=== PATIENT | male | born 1970 | race Caucasian/White ===

== ENCOUNTER 2018-11-09 12:19 | Day surgery (SDC) | payer BC, OTHER ==
[2018-11-06 12:28] VITALS: BMI 34.9
[~2018-11-09 12:19] MED LIST: ACETAMINOPHEN TAB 500 MG TAB PO ONE; DEXAMETHASONE SOD PHOSPHATE 10 MG/ML 1 ML VIAL IV ONE; HYDROmorphone 0.5 MG/0.5 ML SYRINGE IVP PRN; LACTATED RINGERS 1,000 ML IV SCH; MIDAZOLAM (PF) 2 MG/2 ML VIAL IV PRN; ONDANSETRON 4 MG/2 ML VIAL IVP ONE; SCOPOLAMINE 1.5MG/72HR PATCH TRANSDERM ONE; ceFAZolin IN SWFI 2 GM/20 ML SYRINGE IVP ONE
[2018-11-09] MEDS ORDERED: LACTATED RINGERS 1,000 ML IV ONE ×2 (12:54→15:08)
[2018-11-09] MEDS ORDERED: LIDOCAINE 1% 20 ML VIAL (10MG/ML) FOR IV START INTRADERMA ONE (12:55)
[2018-11-09] MEDS ORDERED: fentaNYL (PF) 50 MCG/ML 2 ML AMP IVP ONE (13:14)
[2018-11-09] MEDS ORDERED: ROPIVACAINE 5 MG/ML 30 ML VIAL ONE (14:00)
[2018-11-09] MEDS ORDERED: EPINEPHrine 4 MG in SODIUM CHLORIDE 0.9% IRRIGATIO 3,000 ML IRRIGATION ONE ×8 (14:00)
[2018-11-09] MEDS ORDERED: MIDAZOLAM 2 MG/2 ML VIAL ONE (14:00)
[2018-11-09] MEDS ORDERED: PROPOFOL 10 MG/ML 20 ML VIAL IV ONE (14:00)
[2018-11-09] MEDS ORDERED: SUCCINYLCHOLINE CHLORIDE 100 MG/5 ML SYR IV ONE (14:00)
[2018-11-09] MEDS ORDERED: fentaNYL (PF) 50 MCG/ML 2 ML AMP ONE (14:00)
[2018-11-09] MEDS ORDERED: LIDOCAINE 1% INJ 10MG/ML (20 ML MDV) ONE (14:00)
--- NOTE | 2018-11-09 14:16 | P.ONQ ---
Anesthesiology Proc Note - PNB - Peripheral Nerve Block Performed Right Interscalene Single Time Out Performed: Yes Procedure Start Time: 13:14 Procedure Stop Time: :23 Indication: Requested by physician Specifically requested for management of pain by DrVonda: Ed Saeed Sedation Type: Sedate with meaningful contact maintained Preparation: Sterile Prep Position: Supine Needle Types: Other (see comment) Needle Size: 100mm (4") Needle Gauge: 21 (PUJUNK) Technique: Ultrasound Injectate: 0.5% Ropivacaine (see comment for volume) (20 ml plus Dexamethason 4 mg) Adjunct: Epinephrine (see comment for dilution ratio) Blood Aspirated: No Pain Paresthesia on Injection Noted: No Resistance on Injection: Normal Events: Uneventful and Well Tolerated
[2018-11-09 15:35] VITALS: TEMP 97
[2018-11-09 16:35] VITALS: BP 116/69; PULSE 89; RESP 16
--- NOTE | 2018-11-09 17:13 | P.OP ---
Date of Procedure: 11/09/18 Procedure(s) Performed: PREOPERATIVE DIAGNOSES: 1. Right shoulder long head biceps severe tendinopathy 2. Impingement syndrome with acromioclavicular joint arthritis 3. Rotator cuff tendinopathy 4. Status post previous shoulder arthroscopy 3 years ago. POSTOPERATIVE DIAGNOSES: 1. Right shoulder subacromial mild bursitis with impingement and subacromial adhesions 2. Acromioclavicular joint arthritis 3. Superior labral degenerative/type I tear 4. Superficial rotator cuff tendinopathy, both articular and bursal sided PROCEDURES PERFORMED: 1. Right shoulder arthroscopy with partial distal clavicle excision 3. Arthroscopic debridement of superior labral tear and long head biceps t enotomy and subacromial bursectomy 3. Arthroscopic lysis of adhesions subacromial space with manipulation under anesthesia 4. Arthroscopic subacromial decompression ANESTHESIA: General plus interscalene block (given for post-operative pain management) RAIL CAR LOADER: None COMPLICATIONS: None ESTIMATED BLOOD LOSS: Less than 10 cc TOURNIQUET: None DISPOSITION: To post-anesthesia care unit INDICATIONS: Mr. Light is a 48 year old male with a history of pain in the right shoulder that has been resistant to conservative management. He has had previous arthroscopic surgery on this shoulder but now has signs and symptoms consistent with significant long head biceps symptomatology. There is impingement also noted on exam and findings consistent with this and severe biceps tendinopathy on MRI. At this point the patient has failed conservative management and I have advised an arthroscopy with the plan to repair or optimize the condition of the shoulder if possible. Long head biceps tenotomy is planned. I have explained the details of this surgery thoroughly and also explained the potential risks and complications. These are inclusive of, but not limited to: bleeding, infection, scarring, discomfort, blood vessel and nerve damage, stiffness, weakness, Mingo muscle, need for further surgery, failure to relieve symptoms, persistence or worsening of problems, , and other risks. The consent form has been signed. PROCEDURE: Appropriate consent was obtained from the patient, who was then taken to the operating room and placed in the supine position. General anesthesia was initiated and after confirmation of adequate anesthesia, the patients right shoulder was examined. There was stiffness of the shoulder with limitation of forward flexion to approximately 140, abduction to 100, external rotation to 35, and internal rotation to 35. Manipulation under anesthesia was performed first. Utilizing Codman's paradox maneuver, the shoulder was gently flexed and rotated with additional stretches to include cross body adduction and gentle internal rotation force. Resulting range of motion showed full for flexion, full abduction, external rotation to 85, and internal rotation with the arm in abduction to 70. The shoulder was stable. Next, the patient was rotated into the lateral decubitus position and stabilized to the table with a lozano bag and padded straps. Care was taken to make sure that all pressure points were adequately padded. Bear-hugger was used along with bilateral leg sequential compression devices. Prepping and draping was completed in the usual aseptic fashion using ChloraPrep. The patient received prophylactic intravenous antibiotics prior to incision. The shoulder was suspended from traction with 15 lbs. of weight in a position of 45 degrees abduction. Landmarks were outlined with a skin marking pen. Time out was called, confirming patients identity, side, procedure, and antibiotic administration. A spinal needle was inserted into the glenohumeral joint and fluid was administered to distend the joint. 100 cc was administered. A posterior portal was created using an 11 blade and the arthroscopic canula, over a dull trocar, was carefully inserted into the joint. Arthroscopy then commenced. An anterior portal was inserted in the rotator interval area using inside-out technique. Biceps tendon showed high-grade tendinopathy changes within the bicipital groove without a full-thickness tear. The tendon had some fraying near the insertion to the superior labrum and glenoid. The section of tendon within the groove was pulled into the joint for inspection and found to have at least a 75% tear . The tendon did not appear to be salvageable and therefore a biceps tenotomy was performed just above the superior labrum using a radio frequency. Infraspinatus, supraspinatus, subscapularis, and teres minor attachments were normal. Hyaline cartilage of the glenoid and humeral head showed normal age- related changes. Partial capsular release from the manipulation under anesthesia was noted. Posteriorly, the capsular release was completed using a biting forcep, shaver, and radiofrequency device. No loose bodies were noted within the joint. Labrum showed evidence of moderate degeneration especially superiorly but also posterior/inferiorly. The superior labrum was debrided back to stable tissue using a shaver and the labrum had a significantly improved appearance once this was performed. Thorough probing of the labrum showed good attachment without evidence of peel back. Subscapularis recess and axillary recess were normal except for the previously noted capsular release. No significant synovitis was seen. Labrum inferiorly was debrided with a shaver and then further smoothed using a radiofrequency probe and a low setting ([employer]throCare). Normal capsular ligaments were seen. Attention was then directed to the subacromial space. The camera and instruments were redirected into the subacromial space and bursoscopy was performed. The patients bursa was moderately inflamed and thickened, indicative of chronic impingement. Scar tissue was present from previous arthroscopy. A lateral portal was created using outside-in technique and the thickened bursal material and adhesions were removed using a rotary shaver. Adhesions were noted within the lateral gutter and anterior gutter and these were lysed using a shaver and radiofrequency. The bursal surface of the rotator cuff was fully visualized and found to be intact throughout, except for some very mild superficial fraying of the critical zone area, which was noted to be quite near the acromion. There was approximately 5 mm of space available between the undersurface of the acromion and the rotator cuff. The underside of the acromion anteriorly was cleared of soft tissue using an arthroscopic radiofrequency ablator. Care was taken while using the ablator not to exceed 40 degrees Centigrade within the bursa. There were mild frictional changes on the bursal side of the cuff. A subacromial decompression/acromioplasty was performed using a kobi. Approximately 3-4 mm of material was removed from the anterior-inferior corner of the acromion. This resection was beveled upwards laterally, and carried medially to the AC joint. The distal clavicle appeared to have a contributing downward ridge at the margin of the acromioclavicular joint, and therefore this ridge of bone was removed using a kobi. Subsequently, 4-0 Monocryl suture was used to close the portals. Steri- strips were applied as well as sterile dressing. The shoulder was then placed into a sling and the patient was transferred to recovery room in stable condition. Sponge and needle counts were correct.
== END 2018-11-09 16:50 | disposition home or self-care (01) ==
LOC: OR 12:19
PROVIDERS: ATTEND Orthopaedic Surgery
DX: M19.011 Primary osteoarthritis, right shoulder (principal); M75.41 Impingement syndrome of right shoulder; S43.491A Other sprain of right shoulder joint, initial encounter; M75.01 Adhesive capsulitis of right shoulder; R51 Headache; K21.9 Gastro-esophageal reflux disease without esophagitis; Z87.891 Personal history of nicotine dependence; Z79.1 Long term (current) use of non-steroidal anti-inflammatories (NSAID); Z79.891 Long term (current) use of opiate analgesic; Z79.899 Other long term (current) drug therapy
CPT/HCPCS: 29824; 29823; 29826; 64415; J0171; J2250 ×2; J1100; J2405; J2001; J3010; J2795; J0330; J2704; J0690

== ENCOUNTER 2020-10-02 17:41 | Emergency (ER) | payer OTHER ==
[2020-10-02 17:51] VITALS: BP 178/85; PULSE 66; RESP 18; TEMP 97.9
[2020-10-02] MEDS ORDERED: KETOROLAC 15 MG/ML 1 ML VIAL IVP STA (18:16)
[2020-10-02] MEDS ORDERED: METOCLOPRAMIDE 5 MG/ML 2 ML VIAL IVP STA (18:16)
[2020-10-02] MEDS ORDERED: diphenhydrAMINE 50 MG/ML 1 ML VIAL IVP STA (18:16)
[2020-10-02] MEDS ORDERED: SODIUM CHLORIDE 0.9% 1,000 ML IV STA (18:17)
--- NOTE | 2020-10-02 19:35 | ED ---
General Adult HPI - General Source: patient, family, RN notes reviewed Mode of arrival: ambulatory Limitations: no limitations <Rodrigo Flores - Last Filed: 10/02/20 19:31> <Kari Louis - Last Filed: 10/04/20 13:54> - General Chief complaint: Headache Stated complaint: headache/double vision - History of Present Illness Initial comments: 50-year-old male with a past medical history of chronic headaches, migraines presents to the emergency room for chief quit of headache. Patient states this started approximately 6 hours prior to arrival. States it is on the right side of his head. States it makes his vision blurry. Patient states this is consistent with previous migraines. Patient denies any loss of consciousness or confusion. Does admit to nausea, denies vomiting. Patient did take his Tylenol and Imitrex without improvement. Patient also receives Emgality shots for this. Patient has no other complaints at this time including shortness of breath, chest pain, abdominal pain. (Rodrigo Flores) - Related Data Home Medications Medication Instructions Recorded Confirmed traMADol HCL [Ultram] 100 mg PO DAILY PRN 11/06/18 10/02/20 Galcanezumab-Gnlm [Emgality Pen] 120 mg SQ Q28D 10/02/20 10/02/20 Sertraline HCl [Zoloft] 100 mg PO DAILY 10/02/20 10/02/20 Allergies Allergy/AdvReac Type Severity Reaction Status Date / Time No Known Allergies Allergy Verified 10/02/20 19:39 Review of Systems ROS Other: All systems not noted in ROS Statement are negative. <Rodrigo Flores - Last Filed: 10/02/20 19:31> ROS Other: All systems not noted in ROS Statement are negative. <Kari Louis - Last Filed: 10/04/20 13:54> ROS Statement: Those systems with pertinent positive or pertinent negative responses have been documented in the HPI. Past Medical History Additional Past Medical History / Comment(s): ON VERAPAMIL FOR CHRONIC HEADACHES,migraines. History of Any Multi-Drug Resistant Organisms: None Reported Past Surgical History: Cholecystectomy, Hernia Repair, Orthopedic Surgery Additional Past Surgical History / Comment(s): RT SHOULDER SX, CERVICAL FUSION, RT HAND SX, TREVON PROCEDURE Past Anesthesia/Blood Transfusion Reactions: No Reported Reaction Past Psychological History: Anxiety, Depression Past Alcohol Use History: Occasional Past Drug Use History: None Reported - Past Family History Mother History Unknown: Yes Additional Family Medical History / Comment(s): PT ADOPTED-FAMILY HX UNKNOWN <Rodrigo Flores - Last Filed: 10/02/20 19:31> General Exam Limitations: no limitations General appearance: alert, in no apparent distress, other (Laying in the exam bed with pillow over eyes) Head exam: Present: atraumatic, normocephalic, normal inspection Eye exam: Present: normal appearance ENT exam: Present: normal exam, mucous membranes moist Neck exam: Present: normal inspection, full ROM. Absent: tenderness, meningismus, lymphadenopathy Respiratory exam: Present: normal lung sounds bilaterally. Absent: respiratory distress, wheezes, rales, rhonchi, stridor Cardiovascular Exam: Present: regular rate, normal rhythm, normal heart sounds. Absent: systolic murmur, diastolic murmur, rubs, gallop, clicks GI/Abdominal exam: Present: soft, normal bowel sounds. Absent: distended, tenderness, guarding, rebound, rigid Neurological exam: Present: alert, oriented X3, normal gait <Rodrigo Flores - Last Filed: 10/02/20 19:31> Course Vital Signs 10/02/20 17:45 Temperature 97.9 F Pulse Rate 66 Respiratory 18 Rate Blood Pressure 178/85 O2 Sat by Pulse 99 Oximetry Medical Decision Making <Rodrigo Flores - Last Filed: 10/02/20 19:31> <Kari Louis - Last Filed: 10/04/20 13:54> - Medical Decision Making Patient was given migraine cocktail for chronic headache. Feels much better at this time. Patient will be discharged home to follow up with primary care. He will return here for any worsening symptoms. (Rodrigo Flores) I was available for consultation in the emergency department. The history and physical exam were done by the midlevel provider. I was consulted for this patients care. I reviewed the case with the midlevel provider and based on their presentation of the patient, I agree with the assessment, medical decision making and plan of care as documented. Chart was dictated using [employer] dictation software. Attempts were made to correct any dictation errors however some typographical errors may persist. Patient was seen during a national state of emergency due to the Covid-19 pandemic. (Kari Louis) Disposition Is patient prescribed a controlled substance at d/c from ED?: No Time of Disposition: 19:34 <Rodrigo Flores - Last Filed: 10/02/20 19:31> <Kari Louis - Last Filed: 10/04/20 13:54> Clinical Impression: Headache Disposition: HOME SELF-CARE Condition: Good Instructions (If sedation given, give patient instructions): Acute Headache (ED) Additional Instructions: Please follow up with primary care in 1-2 days. Return to the ER for any worsening symptoms. Referrals: Ricci Mendoza DO [Primary Care Provider] - 1-2 days
== END 2020-10-02 19:47 | disposition home or self-care (01) ==
LOC: EC 17:41
DX: R51.9 Headache, unspecified (principal); F41.9 Anxiety disorder, unspecified; F32.9 Major depressive disorder, single episode, unspecified; Z79.899 Other long term (current) drug therapy; Z86.69 Personal history of other diseases of the nervous system and sense organs
CPT/HCPCS: 99283; 96374; 96375 ×2; 96361; J1200; J2765; J1885